=== PATIENT | male | born 1955 | race Caucasian/White ===

== ENCOUNTER → 2020-07-17 | Outpatient (CLI) | payer OTHER ==
[2020-07-17 10:08] LABS: PROTHROMBIN TIME 11.4 SECONDS (9.0-12.0)
== END ==
LOC: LAB 08:59
DX: I35.0 Nonrheumatic aortic (valve) stenosis (principal)

== ENCOUNTER → 2020-07-20 | Outpatient (CLI) | payer OTHER ==
[2020-07-20 10:09] LABS: PROTHROMBIN TIME 11.5 SECONDS (9.0-12.0)
== END ==
LOC: LAB 09:39
DX: I35.0 Nonrheumatic aortic (valve) stenosis (principal)

== ENCOUNTER → 2020-07-25 | Outpatient (CLI) | payer OTHER ==
[2020-07-25 11:05] LABS: PROTHROMBIN TIME 12.6 SECONDS (9.0-12.0)
== END ==
LOC: LAB 09:54
DX: I35.0 Nonrheumatic aortic (valve) stenosis (principal)

== ENCOUNTER → 2020-07-28 | Outpatient (CLI) | payer OTHER ==
[2020-07-28 09:37] LABS: PROTHROMBIN TIME 12.4 SECONDS (9.0-12.0)
== END ==
LOC: LAB 08:32
DX: I35.0 Nonrheumatic aortic (valve) stenosis (principal)

== ENCOUNTER → 2020-07-31 | Outpatient (CLI) | payer OTHER ==
[2020-07-31 14:53] LABS: PROTHROMBIN TIME 15.2 SECONDS (9.0-12.0)
== END ==
LOC: LAB 14:20
DX: I35.0 Nonrheumatic aortic (valve) stenosis (principal)

== ENCOUNTER → 2020-08-03 | Outpatient (CLI) | payer OTHER ==
[2020-08-03 14:00] LABS: PROTHROMBIN TIME 18.4 SECONDS (9.0-12.0)
== END ==
LOC: LAB 12:59
DX: I35.0 Nonrheumatic aortic (valve) stenosis (principal)

== ENCOUNTER → 2020-08-07 | Outpatient (CLI) | payer OTHER ==
[2020-08-07 15:10] LABS: PROTHROMBIN TIME 20.8 SECONDS (9.0-12.0)
== END ==
LOC: LAB 14:41
PROVIDERS: Internal Medicine Cardiovascular Disease
DX: I35.0 Nonrheumatic aortic (valve) stenosis (principal)

== ENCOUNTER → 2020-08-21 | Outpatient (CLI) | payer OTHER ==
[2020-08-21 15:48] LABS: PROTHROMBIN TIME 19.5 SECONDS (9.0-12.0)
== END ==
LOC: LAB 14:43
DX: I35.0 Nonrheumatic aortic (valve) stenosis (principal)

== ENCOUNTER 2020-08-23 15:00 | Outpatient (RCR) | payer OTHER | END 2020-09-04 | disposition home or self-care (01) | LOC: CARDREHAB | DX: Z48.812 Encounter for surgical aftercare following surgery on the circulatory system (principal); Z95.2 Presence of prosthetic heart valve; I25.2 Old myocardial infarction ==

== ENCOUNTER 2020-09-13 16:00 | Outpatient (RCR) | payer OTHER | END 2020-12-12 | disposition home or self-care (01) | LOC: CARDREHAB | DX: Z48.812 Encounter for surgical aftercare following surgery on the circulatory system (principal); Z95.2 Presence of prosthetic heart valve; I25.2 Old myocardial infarction ==

== ENCOUNTER → 2022-10-15 | Outpatient (CLI) | payer MEDICARE, OTHER | LOC: RAD 09:38 | DX: I25.10 Atherosclerotic heart disease of native coronary artery without angina pectoris (principal); M25.562 Pain in left knee ==